=== PATIENT | male | born 1980 | race Hispanic/Latino ===

== ENCOUNTER 2019-09-15 11:21 | Emergency (ER) | payer SELFPAY ==
--- NOTE | 2019-09-15 12:39 | EDPHYS ---
Physician Documentation [facility] Name: Omid Renee Age: 38 yrs Sex: Male : 1980 Arrival Date: 09/15/2019 Time: 11:23 Bed 16 Private MD: ED Physician Jordin Penny HPI: 09/15 12:41 This 38 yrs old Male presents to ER via Ambulatory with complaints of Anxiety. jr8 12:41 Onset: The symptoms/episode began/occurred gradually, 2 week(s) ago. Associated signs jr8 and symptoms: The patient has no apparent associated signs or symptoms. Modifying factors: The patient symptoms are alleviated by nothing, the patient symptoms are aggravated by nothing. The patient has experienced similar episodes in the past, a few times. The patient has not recently seen a physician. Stated that since he was diagnosed with herpes several years ago, has had a hard time accepting it. Stated that it causes him extreme anxiety. Stated that for the past couple of weeks has had increased anxiety. Not currently from this area and has no f/u. Down here for work. . Historical: - Allergies: 11:43 No Known Allergies; em - Home Meds: 11:43 B complex-minerals oral oral [Active]; em - PMHx: 11:43 Herpes; em - PSHx: 11:43 None; em - Immunization history:: Adult Immunizations up to date. - Social history:: Smoking status: Patient denies any tobacco usage or history of. - Ebola Screening: : Patient negative for fever greater than or equal to 101.5 degrees Fahrenheit, and additional compatible Ebola Virus Disease symptoms Patient denies exposure to infectious person Patient denies travel to an Ebola-affected area in the 21 days before illness onset No symptoms or risks identified at this time. ROS: 12:41 Eyes: Negative for injury, pain, redness, and discharge, ENT: Negative for injury, jr8 pain, and discharge, Neck: Negative for injury, pain, and swelling, Cardiovascular: Negative for chest pain, palpitations, and edema, Respiratory: Negative for shortness of breath, cough, wheezing, and pleuritic chest pain, Abdomen/GI: Negative for abdominal pain, nausea, vomiting, diarrhea, and constipation, Back: Negative for injury and pain, MS/Extremity: Negative for injury and deformity, Skin: Negative for injury, rash, and discoloration, Neuro: Negative for headache, weakness, numbness, tingling, and seizure. 12:41 Psych: Positive for anxiety. Exam: 12:41 Neck: Trachea midline, no thyromegaly or masses palpated, and no cervical jr8 lymphadenopathy. Supple, full range of motion without nuchal rigidity, or vertebral point tenderness. No Meningismus. Cardiovascular: Regular rate and rhythm with a normal S1 and S2. No gallops, murmurs, or rubs. Normal PMI, no JVD. No pulse deficits. Respiratory: Lungs have equal breath sounds bilaterally, clear to auscultation and percussion. No rales, rhonchi or wheezes noted. No increased work of breathing, no retractions or nasal flaring. Abdomen/GI: Soft, non-tender, with normal bowel sounds. No distension or tympany. No guarding or rebound. No evidence of tenderness throughout. Back: No spinal tenderness. No costovertebral tenderness. Full range of motion. Skin: Warm, dry with normal turgor. Normal color with no rashes, no lesions, and no evidence of cellulitis. MS/ Extremity: Pulses equal, no cyanosis. Neurovascular intact. Full, normal range of motion. Neuro: Awake and alert, GCS 15, oriented to person, place, time, and situation. Cranial nerves II-XII grossly intact. Motor strength 5/5 in all extremities. Sensory grossly intact. Cerebellar exam normal. Normal gait. 12:41 Psych: Behavior/mood is anxious, Affect is calm, Oriented to person, place, time, Patient has no thoughts/intents to harm self or others. Judgement / Insight is normal. Memory is normal. Delusions/hallucinations are not present. Vital Signs: 11:42 BP 151 / 99; Pulse 83; Resp 18; Temp 97.7; Pulse Ox 99% on R/A; em 12:47 BP 145 / 89; Pulse 82; Resp 17; Pulse Ox 99% on R/A; sg MDM: 11:39 Patient medically screened. jr8 12:37 Data reviewed: vital signs, nurses notes, and as a result, I will discharge patient. jr8 Data interpreted: Pulse oximetry: on room air is 99 %. Interpretation: normal. Counseling: I had a detailed discussion with the patient and/or guardian regarding: the historical points, exam findings, and any diagnostic results supporting the discharge/admit diagnosis, the need for outpatient follow up, a family practitioner, to return to the emergency department if symptoms worsen or persist or if there are any questions or concerns that arise at home. Administered Medications: No medications were administered Disposition: 16:47 Co-signature as Attending Physician, Jordin Penny MD. rn Disposition: 09/15/19 12:38 Discharged to Home. Impression: Anxiety disorder due to known physiological condition. - Condition is Stable. - Discharge Instructions: Panic Attacks. - Prescriptions for Hydroxyzine HCl 50 mg Oral Tablet - take 1 tablet by ORAL route every 8 hours As needed; 60 tablet. - Medication Reconciliation Form, Thank You Letter, Antibiotic Education, Prescription Opioid Use form. - Follow up: Private Physician; When: 5 - 6 days; Reason: Recheck today's complaints, Continuance of care, Re-evaluation by your physician. - Problem is new. - Symptoms have improved. Signatures: Vivek Pennington RN RN sg Munoz, Edgar, RN RN em Nieto, Roman, MD MD rn Roszak, Josh, PA PA jr8 Corrections: (The following items were deleted from the chart) 13:03 12:38 09/15/2019 12:38 Discharged to Home. Impression: Anxiety disorder due to known sg physiological condition. Condition is Stable. Forms are Medication Reconciliation Form, Thank You Letter, Antibiotic Education, Prescription Opioid Use. Follow up: Private Physician; When: 5 - 6 days; Reason: Recheck today's complaints, Continuance of care, Re-evaluation by your physician. Problem is new. Symptoms have improved. jr8
--- NOTE | 2019-09-15 12:39 | ER ---
Nurse's Notes [facility] Name: Omid Renee Age: 38 yrs Sex: Male : 1980 Arrival Date: 09/15/2019 Time: 11:23 Bed 16 Private MD: Diagnosis: Anxiety disorder due to known physiological condition Presentation: 09/15 11:41 Presenting complaint: Patient states: I have had nerves and anxiety for 2 or 3 days em now, reports having a hx of anxiety but has had no prescriptions for it in the past, denies pain/n/v/d/fever, reports decreased appetite due to having unsettled stomach from feeling anxious. Transition of care: patient was not received from another setting of care. Onset of symptoms was September 15, 2019. Risk Assessment: Do you want to hurt yourself or someone else? Patient reports no desire to harm self or others. Initial Sepsis Screen: Does the patient meet any 2 criteria? No. Patient's initial sepsis screen is negative. Does the patient have a suspected source of infection? No. Patient's initial sepsis screen is negative. Care prior to arrival: None. 11:41 Method Of Arrival: Ambulatory em 11:41 Acuity: [id number] 3 em Historical: - Allergies: 11:43 No Known Allergies; em - Home Meds: 11:43 B complex-minerals oral oral [Active]; em - PMHx: 11:43 Herpes; em - PSHx: 11:43 None; em - Immunization history:: Adult Immunizations up to date. - Social history:: Smoking status: Patient denies any tobacco usage or history of. - Ebola Screening: : Patient negative for fever greater than or equal to 101.5 degrees Fahrenheit, and additional compatible Ebola Virus Disease symptoms Patient denies exposure to infectious person Patient denies travel to an Ebola-affected area in the 21 days before illness onset No symptoms or risks identified at this time. Screenin:45 Abuse screen: Denies threats or abuse. Denies injuries from another. Nutritional sg screening: No deficits noted. Tuberculosis screening: No symptoms or risk factors identified. Never had TB. Fall Risk None identified. Assessment: 11:45 General: Appears in no apparent distress. well groomed, well developed, well nourished, sg Behavior is calm, cooperative, appropriate for age. Pain: Denies pain. Neuro: Level of Consciousness is awake, alert, obeys commands, Oriented to person, place, time, Speech is normal, Facial symmetry appears normal. Neuro: Reports feeling shaky that is intermittent. Cardiovascular: Capillary refill is brisk in bilateral Patient's skin is warm and dry. Chest pain is denied. Respiratory: Airway is patent Respiratory effort is even, unlabored, Respiratory pattern is regular, symmetrical. GI: Abdomen is round non-distended, Reports decreased appetite. : No signs and/or symptoms were reported regarding the genitourinary system. 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 Nares are clear bilaterally Oral mucosa is moist. Throat is pink. Derm: Skin is pink, warm \T\ dry. Musculoskeletal: Circulation, motion, and sensation intact. Range of motion: intact in all extremities. Vital Signs: 11:42 BP 151 / 99; Pulse 83; Resp 18; Temp 97.7; Pulse Ox 99% on R/A; em 12:47 BP 145 / 89; Pulse 82; Resp 17; Pulse Ox 99% on R/A; sg ED Course: 11:23 Patient arrived in ED. rg4 11:39 [facility] jr8 11:39 Jordin Penny MD is Attending Physician. jr8 11:41 Arm band placed on. em 11:42 Triage completed. em 11:44 Vivek Pennington, RN is Primary Nurse. sg 12:42 No provider procedures requiring assistance completed. Patient did not have IV access sg during this emergency room visit. 12:45 Patient has correct armband on for positive identification. Bed in low position. Call sg light in reach. monitor technician on. Pulse ox on. NIBP on. Warm blanket given. Head of bed elevated. Administered Medications: No medications were administered Outcome: 12:38 Discharge ordered by . jr8 12:47 Discharged to home ambulatory, with family. sg 12:47 Condition: good 12:47 Discharge instructions given to patient, Instructed on discharge instructions, follow up and referral plans. medication usage, safety practices, Demonstrated understanding of instructions, follow-up care, medications, Prescriptions given X 1. 13:03 Patient left the ED. sg Signatures: Vivek Pennington RN RN Anant Capone RN RN Romain Ardon PA PA jrCharisma Geronimo rg4
[2019-09-15 20:25] VITALS: BP 151/99; TEMP 97.7; O2SAT 99
== END 2019-09-15 13:03 | disposition home or self-care (01) ==
LOC: ER 11:21
DX: F06.4 Anxiety disorder due to known physiological condition (principal); B00.9 Herpesviral infection, unspecified
CPT/HCPCS: 99284